=== PATIENT | male | born 1955 | race Caucasian/White ===

== ENCOUNTER 2019-09-24 11:11 | Emergency (ER) | payer MEDICAID ==
[~2019-09-24] VITALS: Ht 154.9 cm; Wt 59.9 kg
[~2019-09-24 11:11] MED LIST: COL100 PO; FLEXERIL10 MG PO; LEVOTHYROXIN0.025 M2 PO; LIPITOR80 MG PO; LISINOPRIL40 MG PO; MOTRIN800 MG PO; NORCO1 TA2 PO
[2019-09-24 11:57] VITALS: Ht 154.9 cm; Wt 59.9 kg
[2019-09-24 13:01] LABS: BASOPHIL % 0.3 % (0-2); PLATELET COUNT 286 x10^3mcL (130-400); RED CELL DISTRIBUTION WIDTH 13.9 % (11.5-14.5)
[2019-09-24 13:21] LABS: CALCIUM 9.5 mg/dL (8.5-10.1); CARBON DIOXIDE 22.9 mmol/L (21-32); CREATININE SERUM 1.5 mg/dL (0.7-1.3); POTASSIUM SERUM 4.1 mmol/L (3.5-5.1)
[2019-09-24 13:25] LABS: ALBUMIN 3.7 g/dL (3.4-5.0); BILIRUBIN TOTAL 0.61 mg/dL (0.20-1.00)
[2019-09-24 13:26] LABS: TOTAL PROTEIN, SERUM 8.5 g/dL (6.4-8.2)
[2019-09-24 14:34] VITALS: BP 111/69
== END 2019-09-24 14:53 | disposition home or self-care (01) ==
LOC: ED 11:11
PROVIDERS: Emergency Medicine
DX: K52.9 Noninfective gastroenteritis and colitis, unspecified (principal); I10 Essential (primary) hypertension; E11.9 Type 2 diabetes mellitus without complications; E78.00 Pure hypercholesterolemia, unspecified; E03.9 Hypothyroidism, unspecified
CPT/HCPCS: J7030